=== PATIENT | female | born 2005 | race Caucasian/White ===

== ENCOUNTER 2023-02-16 12:51 | Inpatient (IN) | payer OTHER, MEDICAID, SELFPAY ==
--- NOTE | 2023-02-16 13:54 | P.HPOB_ITS ---
OB HPI Date/Time Date of admission: 02/16/23 Date Patient Seen: 02/16/23 Time Patient Seen: 13:54 History of Present Condition Chief complaint: OB : 1 Para: 0 Estimated Date of Delivery: 02/12/23 Estimated Gestational Age (weeks): 40w4d Narrative: Angela Bland is a 17 year old female at 40w4d by LMP and confirmed by 10 week ultrasound and 2nd trimester ultrasound. Angela established care with on [facility] and remained in her care until she transferred to [facility], approx 35 weeks. Her has been complicated by antibody screen (JAXON) positive, RPR positive with FTA-ABS non-reactive, GBS positive bacteriuria and GBS negative. She was seen by photo checker at [facility] in October and December 2022 and was told she does not have an obvious autoimmune disorder. She is seeing the photo checker again in Mar 2023. Angela called to report rupture of membranes at 1900 on 02/15/23, clear fluid. She declined coming in at that time for evaluation due to normal movement and was advised to meet CNM on L&D unit at 0730. When she was contacted in AM, she had decided to stay home due to mild contractions. Temp at home was 97.8 F at that time, and contractions were irregular and mild. She was advised to come to L&D by 18 hours for evaluation and agreed. Angela refused prophylactic antibiotics for GBS initially; agreed to get antibiotics at 24 hours of ROM. Angela accepts interventions at this time, despite initially wanting a low intervention . She consents to misoprostol and later pitocin. Angela also consents to active management of the third stage of labor after review of her risks with positive antibody screen. History of Present care: good care, initiated at week # (7), number of visits (13 (2 visits with ISAEL ERAZO, then 6 visits with KIM, then 5 visits with CNM)) and pounds weight gain (44) Dating criteria: LMP confirmed by 1st trimester US Ultrasounds: normal 1st trimester US and normal mid trimester US Obstetrical complications: none Medical complications: immunologic (Positive antibody screen) Preadmission Labs Blood type: B (+) positive -: Antibody screen: positive, Cystic fibrosis screen: unknown, GBS status: positive, HBsAG: negative, HIV: negative, HSV 1: unknown, HSV 2: unknown and RPR/VDLR: positive (with treponema confirmation non-reactive) -: Rubella: immune and Varicella: unknown HCT: 33.4 Cell-free DNA: Declined Narrative: 2 hour GTT: fastin, 1 hour: 128, 2 hour 85 Prior (ies) History: none Evaluation Evaluation Baseline heart rate: 135 Variability: Moderate (11-25) monitor accelerations: Present Monitor Decelerations: Absent Contraction Frequency (minutes): 0 (irregular, q 2-6 minutes but painless) Uterine Contraction Intensity: Mild Status: Category l Dilation (cm): 1 Effacement (%): 75 Dilation: 1-2 cm Effacement: 60-70% station: -1 Position of cervix: mid Consistency: firm Box score: 6 PFSH Medical History Positive direct antiglobulin test (JAXON) Surgical History Hx of tonsillectomy Family History (Updated 02/16/23 @ 21:10 by Quin Lee CNM, BERTRAND) Father Hypertension Heart disease Mother Hypertension Diabetes mellitus Depression Thyroid disease Grandmother Diabetes mellitus Cancer Social History marital status: household members: spouse lives independently: Yes education level: college occupational status: employed [employer] do you feel safe at home: Yes Smoking Status: Never smoker alcohol intake: never substance use type: does not use Meds Home Medications and Allergies Home Medications Medication Instructions Recorded Confirmed Type No Known Home Medications 02/16/23 02/16/23 History Allergies Allergy/AdvReac Type Severity Reaction Status Date / Time No Known Drug Allergies Allergy Verified 02/16/23 16:02 Review of Systems Review of Systems Narrative: All negative except as mentioned in HPI. OB Exam Vital signs Blood Pressure: 122/68 Pulse Rate: 85 Respiratory Rate: 84 Temperature: 97.3 F Resp Effort & Inspection: normal respiratory effort and able to speak in complete sentences Auscultation: clear to auscultation bilaterally Cardio Rate: regular rate Rhythm: regular rhythm Heart Sounds: S1 normal, S2 normal and normal, physiologic split S2 Presentation: vertex Estimated Weight (lbs): 8 Amniotic Fluid: clear (ROM since 1900 on 02/15/23 confirmed by amnisure) Objective Labs 02/16/23 14:00 Assessment and Plan Assessment and Plan Assessment and Plan narrative: at 40w4d by LMP PROM x 18 hours GBS positive bacteriuria Antibody screen positive Rh positive Early labor FHR Cat 1 Admit to L&D. Review records in detail as this patient transferred to [facility] in [place] today due to illness. Missing records from: 2nd hematology appointment, first 2 visits with MD at (7 and 10 weeks). Review positive antibody screen with lab; they plan to send to [facility] . Plan for AMTSL to minimize blood loss. Antibiotics for GBS strongly recommended on admission. Pt refused. Plan to start at 1900. Misoprostol for cervical ripening and pitocin augmentation of labor discussed as options. After reviewing r/b/a, plan to start with misoprostol 50 mg buccally. Anticipate use of pitocin later. Hydrotherapy as desired. Anticipate .
[2023-02-16 14:00] VITALS: BP 122/58
[2023-02-16 14:39] LABS: Add Manual Diff / Slide Review NO; Basophils Absolute Auto 0 /uL (0-100); Basophils Percent Auto 0.3 % (0-2); Eosinophils Absolute Auto 100 /uL (0-450); Eosinophils Percent Auto 0.7 % (2-4); Hematocrit 38.4 % (36-46); Lymphocytes Absolute Auto 1500 /uL (1100-4500); Lymphocytes Percent Auto 16.3 % (25-40); Mean Corpuscular HGB Conc 33.8 % (30-36); Mean Corpuscular Hemoglobin 30.6 PG (26-34); Mean Corpuscular Volume 90.6 fL (80-100); Monocytes Absolute Auto 600 /uL (0-900); Neutrophils Absolute Auto 6900 /uL (1500-7000); Neutrophils Percent Auto 75.7 % (50-75); Platelet Count 293 X10^3/uL (150-400); Red Blood Cell Count 4.24 X10^6/uL (4.0-5.2); Red Cell Distribution Width 14.3 % (11.6-14.8); White Blood Cell Count 9.2 X10^3/uL (4.5-11.0)
[2023-02-16] MEDS: miSOPROStoL 25 MCG TABLET 50 MCG PO ×2 (14:50→19:37)
[2023-02-16] MEDS: AMPICILLIN 2,000 MG in SODIUM CHLORIDE 0.9% 100 ML 200 MG IV (19:32)
--- NOTE | 2023-02-16 20:39 | PM.OBPNLAB ---
Date/Time Date Patient Seen: 02/16/23 Time Patient Seen: 19:30 Pain Control Pain control: tolerating well Comments: Angela not feeling much with contractions after first misoprotol. Consented to starting antibiotics at 1900. Well supported by her and credit interviewer. VS: BP 125/58 Temp: 36.3 Pulse: 86/min Pelvic Exam station: -1 Comments: Exam not repeated at this time due to ROM. Contractions Contraction intensity: Mild Status status: Category l Heart Rate Baseline: 135 Monitor Accelerations: Present Monitor Decelerations: Absent Monitor Variability: Moderate Assessment and Plan Assessment: induction ongoing Plan: continuous present management Comments: PROM x 24 hours. Antibody positive. Plan for 3 doses of 50 mcg misoprostol and then begin pitocin augmentation.
[2023-02-16 21:15] VITALS: BP 122/68; PULSE 85; RESP 84; TEMP 36.3
[2023-02-16] MEDS: AMPICILLIN 1,000 MG in SODIUM CHLORIDE 0.9% 100 ML 200 MG IV (23:45)
--- NOTE | 2023-02-16 23:45 | PM.OBPNLAB ---
Date/Time Date Patient Seen: 02/16/23 Time Patient Seen: 23:45 Pain Control Pain control: tolerating well Comments: Angela resting comfortably in bed, sleeping off and on. Starting to breathe through contractions. VS: BP 120/55 HR: 79 bpm T 36.3 C Pelvic Exam Effacement (%): 75 station: -1 Comments: Exam not indicated at this time r/to PROM x 29 hours. Contractions Contraction frequency (min): 2 Contraction duration (min): 1 (30-60 seconds) Contraction pattern: Irregular Contraction intensity: Mild Status status: Category l Heart Rate Baseline: 130 Monitor Accelerations: Present Monitor Decelerations: Absent Monitor Variability: Moderate Assessment and Plan Assessment: induction ongoing (cervical ripening s/p misoprostol x 2 doses) Plan: continuous present management
[2023-02-17] MEDS: AMPICILLIN 1,000 MG in SODIUM CHLORIDE 0.9% 100 ML 200 MG IV (03:37)
--- NOTE | 2023-02-17 05:14 | PM.OBPNLAB ---
Date/Time Date Patient Seen: 02/17/23 Time Patient Seen: 05:15 Pain Control Pain control: tolerating well (on the floor in child's pose, well supported by RN, and industrial economics professor. ) Comments: Angela is spontaneously pushing. Declines SVE. Reports she can feel head approx 1 inch inside her vagina. Has been laboring well since midnight in the tub, on the ball, moving around well. Vomiting occasionally. Pelvic Exam Dilation (cm): 10 Effacement (%): 100 station: +2 Amniotic membrane status: Ruptured (x34 hours, clear fluid) Comments: VS: Temp: 35.7 C Contractions Monitor mode: External Contraction frequency (min): 2 Contraction pattern: Regular Contraction intensity: Strong/Firm Status status: Category ll Heart Rate Baseline: 110 Monitor Accelerations: Present Monitor Decelerations: Early, Late and Variable Monitor Variability: Moderate Assessment and Plan Assessment: active labor Plan: continuous present management Comments: at 40w5d GBS positive, adequately treated Antibody positive 2nd stage labor PROM x 34 hours Afebrile FHR Cat 2 Anticipate NSVB.
[2023-02-17] MEDS: OXYTOCIN 10 UNIT/ML VIAL IM (05:59)
[2023-02-17] MEDS: METHYLERGONOVINE 0.2 MG/ML VIAL IM (06:06)
[2023-02-17] MEDS: TRANEXAMIC ACID 1,000 MG in SODIUM CHLORIDE 0.9% 100 ML 200 MG IV (06:31)
--- NOTE | 2023-02-17 06:36 | P.PCNOB_ITS ---
Events: Labor Augmentation, Premature Rupture Membrane and Prolonged Rupture Membrane Labor & Delivery Delivery date: 02/17/23 Intrapartal Events: Precipitous Labor < 3 hours Cervical ripening method: per misoprostal protocol Induction method: none Delivery monitor: external FHT Route of delivery: Episiotomy description: None L&D Laceration Description: Vaginal - 2nd Degree Delivery repair: vicryl Quantitative Blood Loss: 480 Anesthesia Type: None Narrative: Labor progressed well after 2nd dose of misoprostol and adequate treatment for GBS positive. Angela felt the spontaneous urge to push at 0440 and pushed effectively without coaching for an average 2nd stage. FHR was Cat 1 and 2 throughout 2nd stage. NSVB of baby at 0542 with posterior arm presenting as compound hand so posterior arm and shoulder reduced easily followed by anterior shoulder and gentle delivery of body. Baby was placed on maternal abdomen after Angela had turned over from her delivery position of hands and knees and reached to meet her son. Apgars 8 & 9. IV was no longer functional, so 10 mU IM pitocin given immediately and then a 2nd dose was given, followed by 0.2 mg IM methergine. IV was then replaced and TXA given. Angela and Amir remained skin to skin while cord was cut and placenta was delivered. Placenta delivered spontaneously Schultze with trailing membranes using maternal efforts; appeared to be intact. 3 vessel cord clamped and cut by FOB at 10 minutes of life after cord pulsing had stopped. Cord blood collected for blood typing. Perineum inspected and found to be intact with bleeding vaginal laceration, repaired with 3-0 vicryl in usual fashion. Shallow periurethral lacerations noted bilaterally. Blood loss measured and estimated loss is 480 mL. Mom and baby left stable and is being initiated. Angela and Quentin are thrilled to meet their baby. Quin Lee CLOTH SHRINKING SUPERVISOR, CNM, IBCLC [place] Baby 1: gender: Male Presentation: vertex Position: Left Occiput Anterior Placenta delivery description: Spontaneous Cord Vessel Description: 3 Vessels score (1 min): 8 score (5 min): 9 weight: 3.797 kg Plan for aftercare: Routine care
[2023-02-17] MEDS: DERMOPLAST SPRAY 20% 60 ML 1 SPRAY TOP (08:05)
[2023-02-17 10:20] VITALS: TEMP 36.9
[2023-02-17] MEDS: ACETAMINOPHEN 325 MG TABLET 650 MG PO ×2 (10:20→21:08)
--- NOTE | 2023-02-17 19:46 | P.DS_ITS ---
Discharge Providers Provider Date of admission: 02/16/23 12:51 Discharge Date: 02/18/23 Consults: 02/18/23 07:00 Consult to Teacher Of The Deaf/Hard Of Hearing Routine Comment: Discharge provider: Quin Lee CNM, ARNP Summary Hospital Course Date Patient Seen: 02/17/23 Time Patient Seen: 22:10 Diagnoses: Z34.0 [id number].40 o80 o42.12 Hospital Course: Angela arrived to hospital 18 hours after PROM, still not in labor. Misoprostol 50 mcg buccal x 2 resulted in NSVB. Intact perineum, vaginal laceration repaired. Normal course. . Peripartum Data Delivery Method: Natural Vaginal Laceration Description: Vaginal - 2nd Degree Procedures: Vaginal laceration repaired with 3-0 vicryl in usual fashion. 1: Gender: Male Disposition of : home Discharge Diagnosis (1) (normal spontaneous vaginal delivery): Status: Acute (2) Positive direct antiglobulin test (JAXON): Status: Acute (3) Rupture of membranes with delay of delivery: Status: Acute Time Spent with Patient Time attestation: Total time spent providing and/or coordinating discharge services: Objective Labs 02/16/23 14:00 Exam Other: Fundus firm at U, midline. Lochia scant Perineum intact with minimal edema Discharge Plan Discharge Plan Patient Disposition: Home Discharge orders & Medications Prescriptions: No Action No Known Home Medications Follow up/Referrals: Kaia Alcaraz ARNP [Non-Staff] - 2 Weeks (as scheduled - see e-mail for details) Quin Lee CNM, ARNP [[employer]] - 2 Weeks (and 6 weeks as scheduled) Activity Restrictions/Additional Instructions: Low vásquez for 2 weeks. Only appointments. Lots of skin to skin contact. Diet/Activity/Treatments Diet: Diet as Tolerated and Regular Diet comment: Increase fiber and fluid to support and easy stools. Activity: low-vásquez x 2 weeks Cold/Heat Therapy: as needed Skin/Wound/Dressing Care Skin care: usual care Report to your healthcare provider any signs of infection, such as:: chills, fever, unusual drainage and unusual redness Visit Report/Discharge Packet Stand Alone Forms: Patient Portal/API, Stroke Signs & Symptoms
[2023-02-17] MEDS: KETOROLAC 30 MG/ML VIAL IV (21:07)
== END 2023-02-18 00:10 | disposition home or self-care (01) | DRG 560 ==
PROVIDERS: Admitting Provider Advanced Practice Midwife; Referring Provider Advanced Practice Midwife; Visit Provider Advanced Practice Midwife
DX: O42.12 Full-term premature rupture of membranes, onset of labor more than 24 hours following rupture (principal); O99.824 Streptococcus B carrier state complicating childbirth; O70.1 Second degree perineal laceration during delivery; Z3A.40 40 weeks gestation of pregnancy; Z37.0 Single live birth
CPT/HCPCS: 36415; 59050; 59200; 84112; 85025; 86850; 86870; 86900; 86901; G0379; J0290; J1885; J2210; J2590